=== PATIENT | female | born 1970 | race Caucasian/White ===

== ENCOUNTER → 2016-07-04 | Outpatient (CLI) | payer BC ==
[~2016-07-04] MED LIST: LOSA1TAB PO; MTRUNK PO; MULT-506 PO; PRENTAB26 PO; TYLUNK PO
== END | disposition home or self-care (01) ==
LOC: C.PAPS 16:10
PROVIDERS: ATTEND Obstetrics & Gynecology
DX: Z01.419 Encounter for gynecological examination (general) (routine) without abnormal findings (principal)

== ENCOUNTER → 2016-07-21 | Outpatient (CLI) | payer BC ==
--- NOTE | 2016-07-21 14:08 | MAMMOGRAPHY REPORT ---
BILATERAL DIGITAL SCREENING MAMMOGRAM TOMOSYNTHESIS WITH CAD: 07/21/2016 TECHNIQUE: Breast tomosynthesis in addition to standard 2D mammography was performed. Current study was also evaluated with a Computer Aided Detection (CAD) system. COMPARISON: Comparison is made to exams dated: 07/19/2015 mammogram, 07/17/2014 mammogram, 07/16/2013 mammogram, 01/15/2014 mammogram, 07/15/2012 mammogram, and 07/12/2011 mammogram - [facility]. BREAST COMPOSITION: The tissue of both breasts is heterogeneously dense, which may obscure small ma sses. FINDINGS: No suspicious masses, calcifications, or areas of architectural distortion are noted in e ither breast. There has been no significant interval change compared to prior exams. IMPRESSION: ACR BI-RADS CATEGORY 1: NEGATIVE There is no mammographic evidence of malignancy. A 1 year screening mammogram is recommended. The p atient will receive written notification of the results. Approximately 10% of breast cancers are not detected with mammography. A negative mammographic repor t should not delay biopsy if a clinically suggestive mass is present. Chelsea Ghosh M.D. /:07/21/2016 12:28:43 Accounts Payable Administrator: Mikayla GOLDBERG)(Seferino), [facility] letter sent: Normal 1/2 BI-RADS Code: ACR BI-RADS Category 1: Negative
== END | disposition home or self-care (01) ==
LOC: C.MAMM 08:41
PROVIDERS: ATTEND Obstetrics & Gynecology
DX: Z12.31 Encounter for screening mammogram for malignant neoplasm of breast (principal)

== ENCOUNTER → 2017-01-25 | Outpatient (CLI) | payer BC ==
[2017-01-25 14:13] LABS: BASO % 0.3 %; BASO ABS # 0.02 K/uL (0-0.2); COMPLETE YES; EOS % 1.5 %; HEMATOCRIT 37.5 % (37-47); IG% 0.3 %; LYMPH % 6.1 %; LYMPH ABS # 0.36 K/uL (1.2-3.4); MEAN CELL VOLUME 86.2 fL (80-100); MEAN CORPUSCULAR HEMOGLOBIN 29.9 pg (25-34); MEAN CORPUSCULAR HGB CONC 34.7 g/dl (32-36); MONO % 8.8 %; PLATELET COUNT 240 K/uL (130-400); RED BLOOD COUNT 4.35 M/uL (4.2-5.4); WHITE BLOOD COUNT 5.92 K/uL (4.8-10.8)
[2017-01-25 14:59] LABS: ALT/SGPT 23 U/L (12-78); BLOOD UREA NITROGEN 9 mg/dl (7-18); CALCIUM 8.7 mg/dl (8.5-10.1); CARBON DIOXIDE 26 mmol/L (21-32); CHLORIDE 108 mmol/L (98-107); CHOLESTEROL 166 mg/dl (0-200); CHOLESTEROL/HDL RATIO 3.5; CREATININE 0.76 mg/dl (0.60-1.20); GLUCOSE 80 mg/dl (70-99); HDL CHOLESTEROL 48 mg/dl; POTASSIUM 3.8 mmol/L (3.5-5.1); SODIUM 141 mmol/L (136-145)
[2017-01-25 15:01] LABS: ALB/GLOB RATIO 1.3 (0.9-2); ALKALINE PHOSPHATASE 48 U/L (45-117); AST/SGOT 16 U/L (15-37); LDL CHOLESTEROL CALCULATED 100 mg/dl; TRIGLYCERIDES 92 mg/dl (0-150); VERY LOW DENSITY LIPOPROT CALC 18 mg/dl
== END | disposition home or self-care (01) ==
LOC: C.LABBC 09:50
PROVIDERS: ATTEND Internal Medicine
DX: E78.5 Hyperlipidemia, unspecified (principal); I10 Essential (primary) hypertension; N92.6 Irregular menstruation, unspecified

== ENCOUNTER → 2017-02-26 | Day surgery (SDC) | payer BC ==
[2017-02-15 10:16] VITALS: BMI 24.0
[~2017-02-26] VITALS: Ht 160 cm; Wt 62.7 kg
[~2017-02-26] MED LIST changes: +LIDOCAINE HCL 2% 2 ML VIAL (20MG/ML) ONE; -MTRUNK PO; -PRENTAB26 PO; +PROPOFOL IV EMULSION 10 MG/ML 20 ML VIAL IV ONE; -TYLUNK PO
[2017-02-26 11:09] VITALS: Ht 160 cm; Wt 62.7 kg
[2017-02-26 11:21] VITALS: TEMP 36.8
--- NOTE | 2017-02-26 11:32 | Endo History and Physical ---
History & Physical Date of Service: Feb 26, 2017. Chief Complaint: Change in bowel habits Referring Physician: DR. LABOY History of Present Illness 46 yo CF who presents for colonoscopy secondary to change in bowel habits. Past Surgical History Hx Cardiac Surgery: No Hx Internal Defibrillator: No Hx Pacemaker: No Hx Abdominal Surgery: Yes (LEEP) Hx of Implantable Prosthesis: No Hx Post-Op Nausea and Vomiting: No Hx Cancer Surgery: No Hx Thoracic Surgery: No Hx Orthopedic: No Hx Urinary Tract Surgery: No Family History None Social History Smoking Status: Never Smoker Hx Substance Use: No Hx Alcohol Use: Yes (RARELY) Allergies Coded Allergies: No Known Allergies (Unverified , 02/26/17) Current Medications Reported Home Medications Medications Dose Route/Sig Max Daily Dose Days Date Category Multivitamin (Multivitamins) Tab 1 Tab PO QPM 02/15/17 Reported Cozaar (Losartan Potassium) 25 Mg Tab 25 Mg PO BID 02/15/17 Reported Vital Signs Weight (Kilograms): 62.73 Height (Feet): 5 Height (Inches): 3 Date Time Temp Pulse Resp B/P (MAP) Pulse Ox O2 Delivery O2 Flow Rate FiO2 02/26/17 11:21 36.8 80 18 156/87 (110) 99 Room Air Physical Exam General Appearance: WD/WN, no apparent distress Respiratory/Chest: Auscultation: breath sounds normal Cardiovascular: Heart Auscultation: RRR Abdomen: Bowel Sounds: normal Inspection & Palpation: soft, non-distended, no tenderness, guarding & rebound Assessment and Plan Assessment: 46 yo CF who presents for colonoscopy secondary to change in bowel habits. Plan: Proceed with colonoscopy.
--- NOTE | 2017-02-26 12:06 | Discharge Instructions ---
Endoscopy Patient Instructions Date / Procedure(s) Performed Feb 26, 2017. Colonoscopy Allergy Information Coded Allergies: No Known Allergies (Unverified , 02/26/17) Discharge Date / Findings Feb 26, 2017. Internal hemorrhoids Medication Instructions OK to resume all medications today as prescribed Reported Home Medications Medications Dose Route/Sig Max Daily Dose Days Date Category Multivitamin (Multivitamins) Tab 1 Tab PO QPM 02/15/17 Reported Cozaar (Losartan Potassium) 25 Mg Tab 25 Mg PO BID 02/15/17 Reported Provider Instructions Activity Restrictions - No exercising or heavy lifting for 24 hours. - Do not drink alcohol the day of the procedure. - Do not drive a car or operate machinery until the day after the procedure. - Do not make any important decisions or sign important papers in 24 hours after the procedure. Following Day: - Return to full activity which may include returning to work/school. Diet Start your diet with liquids and light foods (jello, soup, juice, toast). Then eat your usual diet if not nauseated. Treatment For Common After Affects For mild abdominal pain, bloating, or excessive gas: - Rest - Eat lightly - Lie on right side Follow-Up Information Follow-up with DR. LABOY as scheduled Anesthesia Information What You Should Know You have had a procedure that required some medicine to reduce anxiety and discomfort. This treatment is called moderate sedation. After receiving the treatment, you may be sleepy, but you will be able to breathe on your own. The effects of the treatment may last for several hours. Follow these instructions along with Activity/Diet recommendations noted above: * Do NOT do anything where dizziness or clumsiness would be dangerous. * Rest quietly at home today, then you can be up and about tomorrow. * Have a responsible person stay with you the rest of today. * You may have had an I.V. today. If so, you may take the dressing off later today. Recommendations Call your doctor if: * Trouble breathing * Continuous vomiting for more than 24 hours * Temperature above 101 degrees * Severe abdominal pain or bloating * Pain not relieved by pain medicine ordered * There is increased drainage or redness from any incision * A large amount of rectal bleeding greater than 2-3 tablespoons. (If you had a polyp/s removed or have hemorrhoids, a small amount of blood - from the rectum is to be expected.) * You have any unanswered questions or concerns. IN THE EVENT OF A SERIOUS EMERGENCY, GO TO THE NEAREST EMERGENCY ROOM Your discharge instructions were prepared by provider Karthik Simons. Patient Instructions Signature Page Colleen Vargas Patient (or Guardian) Signature/Date: I have read and understand the instructions given to me by my caregivers. Caregiver/RN/Doctor Signature/Date: The above-named patient and/or guardian has received patient instructions on this date. + Original Patient Signature Page (only) stays with chart. Please make copy for patient.
--- NOTE | 2017-02-26 12:10 | GI REPORT ---
Procedure Date: 02/26/2017 11:45 AM Procedure: Colonoscopy Indications: Change in bowel habits Medicines: Monitored Anesthesia Care Complications: No immediate complications. Estimated Blood Loss: Estimated blood loss: none. Procedure: Pre-Anesthesia Assessment: - Prior to the procedure, a History and Physical was performed, and patient medications and allergies were reviewed. The patient's tolerance of previous anesthesia was also reviewed. The risks and benefits of the procedure and the sedation options and risks were discussed with the patient. All questions were answered, and informed consent was obtained. Prior Anticoagulants: The patient has taken no previous anticoagulant or antiplatelet agents. ASA Grade Assessment: II - A patient with mild systemic disease. After reviewing the risks and benefits, the patient was deemed in satisfactory condition to undergo the procedure. After I obtained informed consent, the scope was passed under direct vision. Throughout the procedure, the patient's blood pressure, pulse, and oxygen saturations were monitored continuously. The scope was introduced through the anus and advanced to the terminal ileum. The colonoscopy was performed without difficulty. The patient tolerated the procedure well. The quality of the bowel preparation was good. The terminal ileum, ileocecal valve, appendiceal orifice, and rectum were photographed. Findings: Non-bleeding internal hemorrhoids were found during retroflexion. The hemorrhoids were small. Impression: - Non-bleeding internal hemorrhoids. - No specimens collected. Recommendation: - Resume previous diet. - Continue present medications. - Repeat colonoscopy in 10 years for surveillance. - Return to primary care physician as previously scheduled. Karthik Simons DO 02/26/2017 12:09:48 PM This report has been signed electronically. Note Initiated On: 02/26/2017 11:45 AM I attest to the content of the Intraoperative Record and orders documented therein, exceptions below
[2017-02-26 12:35] VITALS: BP 158/82; PULSE 60; O2SAT 100
--- NOTE | 2017-02-26 12:38 | Anesthesiology Progress Note ---
Anesthesia Post Op Note Date & Time Feb 26, 2017 at 12:38 Vital Signs Pain Intensity: 0 Vital Signs Past 12 Hours Date Time Temp Pulse Resp B/P (MAP) Pulse Ox O2 Delivery O2 Flow Rate FiO2 02/26/17 12:20 72 18 135/80 (98) 100 Room Air 02/26/17 12:05 78 18 122/71 (88) 100 Room Air 02/26/17 11:21 36.8 80 18 156/87 (110) 99 Room Air Notes Mental Status: alert / awake / arousable, participated in evaluation Pt Amnestic to Procedure: Yes Nausea / Vomiting: adequately controlled Pain: adequately controlled Airway Patency, RR, SpO2: stable & adequate BP & HR: stable & adequate Hydration State: stable & adequate Anesthetic Complications: no major complications apparent
== END | disposition home or self-care (01) ==
LOC: C.GI 10:26
PROVIDERS: ATTEND Internal Medicine
DX: R19.4 Change in bowel habit (principal); K64.8 Other hemorrhoids; Z79.899 Other long term (current) drug therapy

== ENCOUNTER → 2017-07-23 | Outpatient (CLI) | payer OTHER ==
[~2017-07-23] MED LIST changes: -LIDOCAINE HCL 2% 2 ML VIAL (20MG/ML) ONE; -PROPOFOL IV EMULSION 10 MG/ML 20 ML VIAL IV ONE
--- NOTE | 2017-07-24 15:25 | MAMMOGRAPHY REPORT ---
BILATERAL DIGITAL SCREENING MAMMOGRAM TOMOSYNTHESIS WITH CAD: 07/23/2017 CLINICAL HISTORY: Routine screening examination. TECHNIQUE: Breast tomosynthesis in addition to standard 2D mammography was performed. Current study was also evaluated with a Computer Aided Detection (CAD) system. COMPARISON: Comparison is made to exams dated: 07/21/2016 mammogram, 07/19/2015 mammogram, 07/17/2014 m ammogram, 01/15/2014 mammogram, 07/24/2013 mammogram, and 07/24/2013 ultrasound - [facility]. BREAST COMPOSITION: The tissue of both breasts is heterogeneously dense, which may obscure small mas ses. FINDINGS: The parenchymal pattern is unchanged. No developing mass, architectural distortion or clus ter of suspicious microcalcifications is seen in either breast. IMPRESSION: ACR BI-RADS CATEGORY 2: BENIGN There is no mammographic evidence of malignancy. A 1 year screening mammogram is recommended. The pa tient will receive written notification of the results. Approximately 10% of breast cancers are not detected with mammography. A negative mammographic report should not delay biopsy if a clinically suggestive mass is present. Ina Camacho M.D. ay/:07/23/2017 16:54:17 Clinical Field Specialist: Mikayla FELICIANO(Brenda)(M), [facility] letter sent: Normal 1/2 BI-RADS Code: ACR BI-RADS Category 2: Benign
== END ==
LOC: C.MAMM 13:16
PROVIDERS: ATTEND Internal Medicine
DX: Z12.31 Encounter for screening mammogram for malignant neoplasm of breast (principal)

== ENCOUNTER 2023-01-25 10:00 | Observation (INO) ==
--- NOTE | 2023-01-04 20:07 | PAT Medication Instructions ---
Medication Instructions Date of Service January 04, 2023 Home Medications qmqentelpolr-Ww-rvsh-minerals (Multiple Vitamin, Womens tablet) 1 tab PO DAILY escitalopram oxalate 10 mg tablet 10 mg PO QPM telmisartan 40 mg tablet (Micardis) 40 mg PO QPM DO NOT take the morning of surgery lihtnmsoxlxh-Ma-cdfv-minerals (Multiple Vitamin, Womens tablet) 1 tab PO DAILY Take evening before surgery escitalopram oxalate 10 mg tablet 10 mg PO QPM telmisartan 40 mg tablet (Micardis) 40 mg PO QPM OTHERWISE NOTHING TO EAT OR DRINK AFTER MIDNIGHT Other Notes If you have any questions please call us at [phone] or [phone] or [phone] or [phone]
--- NOTE | 2023-01-12 15:24 | Anesthesiology Consultation ---
Date of Service January 12, 2023 Assessment & Plan (1) Encounter for pre-operative examination: Chart Review Chart Review: Acceptable Risk for Surgery (pending PCP clearance 01/17/23) and Patient NOT seen in Pre Admission Testing - Awaiting PCP clearance 01/17/23 ([facility]) - Check test AM DOS Pt currently scheduled as 23 hours observation. If surgeon decides to change patient to Same Day Joint, patient would be acceptable risk for AGATHA, pending patient is motivated, has good support and surgeon's office completes Same Day Joint Program preop requirements. Per PAT appt on 01/12/23, no recent Covid exposures, Covid related symptoms, or recent Covid positive tests. Will leave to surgeon's discretion if preop Covid testing needed Teaching & Discussion Pre-Anesthesia Teaching/Discussion Notes: Instructed NPO after midnight before surgery,except medications with 15 cc of water. Medication instructions provided according to the PAT guidelines. History Surgery Operation Date: 01/25/23 11:00 Proposed Procedures p Left Total Hip Arthroplasty - Lobo Contreras MD Height/Weight Height: 5 ft 3 in Weight: 62.6 kg Allergies Allergy/AdvReac Type Severity Reaction Status Date / Time No Known Drug Allergies Allergy Verified 01/04/23 14:24 Medications Home Medications Medication Instructions Recorded Confirmed Last Taken jgyrfaekwqhd-Bs-jjym-minerals 1 tab PO DAILY 01/27/19 01/04/23 Unknown (Multiple Vitamin, Womens tablet) escitalopram oxalate 10 mg tablet 10 mg PO QPM 01/04/23 01/04/23 Unknown telmisartan 40 mg tablet (Micardis) 40 mg PO QPM 01/04/23 01/04/23 Unknown Past Medical History Medical History Adjustment disorder with anxiety History of COVID-19 03/2022 - mild symptoms- symptoms resolved Hypertension Exercise / Class Metabolic Activity II 4-5 Yardwork/Stairs/Walk up hill (one flight of stairs - no chest pain or SOB ) Past Family History Family History Father Hypertension Grandmother Hypertension Myocardial infarction Mother Schizophrenia Grandfather Myocardial infarction Sister Fibromuscular dysplasia Denies family history of Ovarian cancer Prostate cancer Breast cancer Lung cancer Colorectal cancer Stroke Past Surgical History Surgical History H/O oral surgery History of colonoscopy History of cryosurgery cervix History of tooth extraction Hx of biopsy vulvar Past Anesthesia History No Hx of Anesthesia Complications and No Family Hx of Anesthesia Complications History of PONV No Hx of PONV and No Hx of Motion Sickness Social History Smoking Status: Never smoker Do You Dip or Chew Tobacco: No Hx Alcohol Use: Yes Alcohol type: beer and hard liquor alcohol intake frequency: a few times a month Hx Substance Use: No substance use type: does not use Review of Systems Hx of snoring- no witnessed apnea- no hx of sleep study Patient denies chest pain, shortness of breath, dyspnea on exertion, reflux, cough, wheezing, palpitations. No hx of seizures, stroke, [place]. No hx of blood clots or blood transfusions Physical Exam Vital Signs VITALS BP 143/81 P 65 TEMP 97.9 SP02 98% RESP 16 Constitutional no acute distress ENMT Mouth: no TMJ clicking Thyromental Distance: < 3.5 Finger Breadths (3.0) Mallampati Class: I Permanent bridge bilaterally Neck neck extension not limited Respiratory normal respiratory effort; no respiratory distress Auscultation: lungs clear to auscultation bilaterally; no wheezes Cardiovascular Rate/Rhythm: regular rate and regular rhythm Heart Sounds: no murmur Vessels: no carotid bruit Musculoskeletal Spine: no pain with cervical ROM Extremities: extremities normal to inspection Psychiatric Orientation: alert Lab Results Anesthesia Preop Results Results Anesthesia Widget: WBC 4.47 K/ul (4.8-10.8) L 01/12/23 Hgb 14.1 g/dl (12.0-16.0) 01/12/23 Hct 39.5 % (37.0-47.0) 01/12/23 Plt 239 K/uL (130-400) 01/12/23 Na 136 mmol/L (136-145) 01/12/23 K 4.1 mmol/L (3.5-5.1) 01/12/23 Cl 103 mmol/L (98-107) 01/12/23 CO2 29 mmol/L (21-32) 01/12/23 BUN 17 mg/dl (6-23) 01/12/23 Creat 0.68 mg/dl (0.6-1.2) 01/12/23 Glucose Level 75 mg/dl (70-99(Fasting)) 01/12/23 PT 11.4 Seconds (9.0-12.0) 01/12/23 PTT 26.2 Seconds (21.0-31.0) 01/12/23 INR 1.0 (0.9-1.1) 01/12/23 Urine Color Yellow 01/12/23 Urine Appearance Clear (Clear) 01/12/23 Urine pH 6.0 (4.5-7.5) 01/12/23 Urine Specific [place] 1.004 (1.000-1.030) 01/12/23 Urine Protein Negative (Negative) 01/12/23 Urine Glucose (UA) Negative (Negative) 01/12/23 Urine Ketones Negative (Negative) 01/12/23 Urine Blood Negative (Negative) 01/12/23 Urine Nitrite Negative (Negative) 01/12/23 Urine Bilirubin Negative (Negative) 01/12/23 Urine Urobilinogen Negative (Negative) 01/12/23 Urine Leukocyte Esterase Negative (Negative) 01/12/23 Blood Type B Positive 01/12/23 Antibody Screen NEGATIVE 01/12/23 Testing Laboratory Results 01/12/23= URINE CULTURE: No growth- less than 1000 colonies/mL Electrocardiogram Date: 01/12/23 Findings: + SB @ (59bpm ) Minimal voltage criteria for LVH, may be normal variant
--- NOTE | 2023-01-12 16:44 | History & Physical Report ---
Date of Service January 12, 2023 Assessment & Plan (1) Osteoarthritis of left hip: Plan: PRE-OP Diagnosis: Left hip osteoarthritis Planned Procedure: Left total hip arthroplasty Plan: Patient is scheduled to undergo this procedure at the [facility] with a 23-hour observation admission with Dr. Contreras on January. Risks and complications of the procedure such as: Infection, bleeding, pain, scarring, nerve blood vessel damage, weakness, wound problems, stiffness, incomplete relief of symptoms, hardware failure, hardware loosening, wear, fracture, tendon or ligament injury, dislocation, leg length inequality, blood clots, Embolism, heart attack, stroke and were explained to the patient at her visit today. Informed consent to perform the procedure was obtained. Patient also understands risks of proceeding with surgical intervention during the COVID-19 pandemic. Currently she is asymptomatic and has not been in contact with anyone positive for the virus recently. Patient has an appointment to meet with anesthesia later today and while there will obtain CBC with differential, complete metabolic panel, PT/INR, blood type and screen, urinalysis, urine culture and sensitivity, EKG, and a nasal culture for MRSA. Patient will also need preoperative medical clearance from their primary care provider Dr. Palacio. Patient states that she plans on doing in-home physical therapy for the first 1 to [facility] Patient states that she will most likely elect to do outpatient physical therapy at our PT clinic. Patient states she has a walker and a raised toilet seat. She plans on purchasing a shower bench and a hip kit. During today's visit we reviewed the total hip packet as well as precautions. We discussed discharge planning from the hospital. I provided paperwork to obtain a handicap placard for their vehicle. We discussed lectures offered by [facility] in regards to joint replacement surgery via Zoom. I advised the patient that upon discharge from hospital we will prescribe a narcotic pain medication and anti-inflammatory. Patient will also be on an 81 mg aspirin twice daily for blood clot prevention. Patient will be scheduled for 2-week postoperative follow-up visit with myself on February 07. At that visit we will Provide the patient with an order for outpatient physical therapy and rehab protocol. Patient verbalizes understanding of all information provided during today's visit. She thanks for the care that she received. If she has questions or concerns that should arise prior to her surgery, she will contact clinic. This chart was completed utilizing [employer] voice recognition software. Grammatical errors, random word insertions, pronoun errors, and in complete sentences are an occasional consequence of the system. Any questions or concerns about the content, text, or information contained within the body of this dictation should be addressed directly to the physician for clarification. History of Present Illness Chief Complaint: Left Hip Pain Primary Care Provider: Nolan Palacio MD History of Present Illness (including history relevant to procedure): This 52-year-old female presents to the clinic today for preoperative history and phy sical. Patient complains of constant left hip pain for the past several years. She has noticed decreasing mobility and difficulty transitioning from a seated to a standing position after sitting for long periods of time. She states that at times the pain radiates from her groin down her leg. She denies any numbness or tingling or recent injuries. She has failed conservative management with ph ysical therapy and the use of nonsteroidal agents. She has elected to proceed with surgical intervention. Review Of Systems: A 12 point review of systems is performed and is unremarkable except for those things stated in the HPI and past medical history. Past Medical History: Problems: Arthritis of left hip High blood pressure Hip osteoarthritis Left hip pain Anxiety/depression Migraine headache Procedure History Procedure Procedure Date Comments [place] tooth 1989 Initial Wt: 01/12 61.0 kg 134 lb Allergies Allergy/AdvReac Type Severity Reaction Status Date / Time No Known Drug Allergies Allergy Verified 01/04/23 14:24 Home Medications Medication Instructions Recorded Confirmed Type ueugxemjvaku-Qj-taik-minerals 1 tab PO DAILY 01/27/19 01/04/23 History (Multiple Vitamin, Womens tablet) escitalopram oxalate 10 mg tablet 10 mg PO QPM 01/04/23 01/04/23 History telmisartan 40 mg tablet (Micardis) 40 mg PO QPM 01/04/23 01/04/23 History Past Med/Surg History Medical History Adjustment disorder with anxiety History of COVID-19 03/2022 - mild symptoms- symptoms resolved Hypertension Surgical History H/O oral surgery History of colonoscopy History of cryosurgery cervix History of tooth extraction Hx of biopsy vulvar Family History Father Hypertension Grandmother Hypertension Myocardial infarction Mother Schizophrenia Grandfather Myocardial infarction Sister Fibromuscular dysplasia Denies family history of Ovarian cancer Prostate cancer Breast cancer Lung cancer Colorectal cancer Stroke Social History Smoking Status: Never smoker Second Hand Exposure: No; Do You Dip or Chew Tobacco: No; Hx Alcohol Use: Yes Alcohol type: beer and hard liquor Alcohol Intake Frequency Comment: Social Hx Substance Use: No Preferred Language: Spanish Communication Ability: Effective Visual Impairment: No Limitations Hearing Ability: Normal Housekeeping Supervisor Required: No Beliefs That Will Affect Care: None marital status: Current Living Situation: Family Current Living Situation Comment: lives with 14 y.o. son Feels Safe at Home: Yes Childhood Exposure to Second-Hand Smoke: No Seatbelt Use: always Assistive Devices: Glasses Review of Systems All systems reviewed & are unremarkable except as noted in Subjective Physical Exam Physical Exam: Physical Exam: (relevant to the procedure, including heart and lung evaluation) General: Alert and oriented x3 with proper grooming and hygiene Eyes: Pupils are equal and reactive to light with accommodation. Extraocular movements are intact Throat: Posterior oropharynx clear with absence of edema, erythema or exudate. Dentition is appropriate Cardiac: Regular rate and rhythm with no murmurs or gallops appreciated Lungs: Clear to auscultation throughout with no wheezing, rales or rhonchi Abdomen: Nonobese, nondistended, nontender with NABS Extremities: Left hip: Passive flexion is limited to 80 degrees, internal rotation is -5 degrees and external rotation to 50 degrees. Stinchfield test is positive. Logroll test causes no pain. Patient experiences tenderness to palpation over the groin area. There is crepitation with passive range of motion. Patient is neurovascular intact. Neuro: Cranial nerves II through XII are intact no motor or sensory deficit Skin: Normal in appearance no open skin areas or discharge Results & Data Diagnostic Findings Studies of Lab Results (relevant to the procedure): X-ray imaging: AP, pelvis, and 2 views of each hip obtained show degenerative changes of thelateral acetabular rim of the left hip and enlargement of osteophytes inferiorly. There is evidence of joint space narrowing of the right hip.
[~2023-01-25 10:00] MED LIST changes: +ACETAMINOPHEN 500 MG TAB PO SCH; +BUPIVACAINE 0.5 % 5 MG/1 ML PF 10ML VIAL ONE; +CeleBREX 200 MG CAP PO SCH; +FAMOTIDINE 20 MG TAB PO SCH; +LIDOCAINE 2% 2 ML VIAL/AMP(20MG/ML) INFIL ONE; -LOSA1TAB PO; +LR 500ML BOLUS, THEN 15ML/HR IV SCH; +LR 60ML/HR IV SCH; +MIDAZOLAM HCL 1 MG/ML 2ML VIAL ONE; -MULT-506 PO; +ONDANSETRON INJ 2 MG/ML 2 ML VIAL ONE; +PROPOFOL IV EMULSION 10 MG/ML 20 ML VIAL IV ONE; +ROPIVACAINE 0.5% HCL/PF 150 MG, BUPIVACAINE 0.75% MPF 20 ML, EPINEPHrine 0.15 MG, Ketor... INFIL SCH; +Scopolamine 1 MG TDSY TD SCH; +TRANEXAMIC ACID 1,000 MG **IV Intra-op IV SCH; +TRANEXAMIC ACID 1,000 MG **IV Pre-op IV SCH; +ceFAZolin 2000MG 2,000 MG/15 ML SYR IV SCH; +dexAMETHasone 4 MG TAB PO SCH; +fentaNYL citrate PF 100 MCG/2 ML VIAL ONE; +traMADol HCL 50 MG TABLET PO SCH
[2023-01-25] MEDS ORDERED: ePHEDrine sulfate 50 MG/ML AMP IV PRN (10:38)
[2023-01-25] MEDS ORDERED: ONDANSETRON INJ 2 MG/ML 2 ML VIAL IV PRN ×2 (10:38→13:11)
[2023-01-25] MEDS ORDERED: ATROPINE SULFATE 0.1 MG/ML 10ML SYR IV PRN (10:38)
[2023-01-25] MEDS ORDERED: fentaNYL citrate PF 100 MCG/2 ML VIAL IV PRN (10:38)
--- NOTE | 2023-01-25 10:47 | History & Physical Bridge Note ---
Date of Service January 25, 2023 History & Physical Bridge Note I have examined the patient, reviewed the History & Physical and in the interval since the performance of the History & Physical I have noted the following changes of clinical significance: no changes noted
[2023-01-25] MEDS ORDERED: ORTHO JOINT ANESTHETIC ONE (11:01)
[2023-01-25] MEDS ORDERED: DEXAMETHASONE SOD INJ 4 MG/ML VIAL ONE (11:48)
[2023-01-25] MEDS ORDERED: ePHEDrine sulfate 50 MG/ML SYR ONE (12:31)
[2023-01-25] MEDS ORDERED: PHENYLEPHRINE HCL 10 MG/ML VIAL ONE (12:31)
--- NOTE | 2023-01-25 13:01 | Operative Report ---
Post Operative Report Pre & Post Diagnosis Operation Date: 01/25/23 11:20 Pre-Op Diagnosis: Left Hip Osteoarthritis Post-Op Diagnosis: Left Hip Osteoarthritis I identified the patient and participated in the time-out.: Yes Procedure Operation Date: 01/25/23 11:20 Actual Procedures p Left Total Hip Arthroplasty--Uncemented(Left) - Lobo Contreras MD Surgeon Lobo Contreras MD Certified Medical Aide DANNY Diane PA-C no resident or fellow was available to assist Estimated Blood Loss 100 Findings Consistent with Post-Op Diagnosis Specimens left femoral head Anesthesia Type Spinal MAC Complications none Disposition Disposition: Recovery Room Indications 52-year-old female with left hip arthritis refractory to conservative management. X-rays demonstrate severe joint space loss [id number], subchondral sclerosis, and subchondral cyst formation with marginal osteophytes. I had a long discussion with her about the risks and benefits of surgery, alternatives to surgery, and expected outcomes. After reviewing all these she elected to proceed with surgery. All questions were answered. Informed consent was signed. Description of Procedure Patient was identified in the preoperative holding area where the surgical site, left hip, was marked. A spinal anesthetic was placed, then the patient was brought back to the main operating room, placed in the operating table and moved into the lateral decubitus position. Axillary roll was placed. All bony prominences were padded. Perioperative antibiotics and tranexamic acid 1 gram IV were administered. Operative extremity was prepped and draped in the normal sterile fashion. Prior to incision a multidisciplinary timeout was called. All in the room were in agreement. We began by making an incision for a posterior approach to the hip. We dissected down through subcutaneous tissues to the level of the fascia. The fascia was incised in line with the incision. Charnley bow was placed. Fatty tissue was reflected posteriorly off the back of the greater trochanter to expose the piriformis and short external rotators of the hip. The piriformis and short external rotators were dissected off the posterior aspect of the hip. A box cut was made in the capsule. Inferior hip capsule was released off the femur. The femoral head was dislocated. The femoral neck cut was made at our preoperative template. The acetabulum was then exposed. The labrum was sharply excised. Contents of the cotyloid fossa were removed with electrocautery. We then began reaming at a size 8 mm less than our preoperative template. We reamed up by [address] the way up to a size 50 mm cup. This gave us good bleeding cancellus bone circumferentially. The acetabulum was then irrigated out and dried. The real [place] Gription cup was then impacted down into position with 45 degrees of lateral opening and 25 degrees of anteversion. A single cancellous bone screw was placed up into the ilium. Excellent fixation was obtained. A trial liner for a 32 mm femoral head was then placed. Next we turned our attention to the femur. The lateral neck was removed with a box osteotome. Intramedullary guide was used followed by the lateralizing reamer. We then reamed up to a size 3 [place] stem. We then broached all the way up to a size 3. We began trialing with a high offset neck and a +5 head. Hip was reduced. Leg lengths were symmetric. The hip was stable in extension and external rotation, and stable in the sleeper position. At 90 degrees of hip flexion the hip could be internally rotated 55 degrees before levering out of the cup. I was very happy with the stability exam. Therefore the hip was dislocated and the femoral trial was removed. The acetabulum was re-exposed, and the trial liner was removed. [place] hole eliminator was placed. An Altrx polyethylene liner for a 32 mm femoral head was then impacted into the shell. The locking mechanism was checked to ensure that it had engaged which it had. The femur was re-exposed. The femoral canal was irrigated and dried. The real size 3 high offset [place] femoral stem was opened up. This was impacted down into position. It sat at the same level as the femoral trial. Therefore the 32 mm ceramic femoral head with +5 mm offset was opened up and gently impacted down onto the trunnion. The hip was atraumatically reduced. Another 1 gram of IV tranexamic acid was started prior to closure. The wound was irrigated out with sterile Betadine solution. The periarticular injection cocktail was then placed. The short external rotators, piriformis, and posterior capsule were repaired through drill holes in the greater trochanter using #2 Vicryl. The fascia was run with a looped #1 PDS. The subcutaneous layer was closed with #1 PDS. The dermal layer was closed with 2-0 Vicryl. Zip line was used for the skin followed by a Silverlon dressing. A compressive dressing was then placed. The patient was then rolled supine. Leg lengths were rechecked and were symmetric. An abduction pillow was placed. Sedation was lifted and the patient was transferred to the recovery room in stable condition. Summary of implants: Depuy [place] Gription Acetabular Shell Sector Cup, 50 mm outer diameter [place] Cancellous bone screw, 6.5 x 40 mm [place] hole eliminator [place] Altrx Polyethylene Acetabular Liner, Neutral, with a 32 mm inner diameter DePuy [place] Femoral stem with [place], 12/14 taper, size 3 high offset 32 mm ceramic femoral head with +5 offset Postoperative course: Patient will be admitted to the hospital from the recovery room. Patient will be weightbearing as tolerated with posterior hip precautions. Aspirin for DVT prophylaxis I attest to the content of the Intraoperative Record and any orders documented therein. Any exceptions are noted below.
--- NOTE | 2023-01-25 13:10 | Operative Report ---
Post Operative Report Pre & Post Diagnosis Operation Date: 01/25/23 11:20 Pre-Op Diagnosis: Left Hip Osteoarthritis Post-Op Diagnosis: Left Hip Osteoarthritis I identified the patient and participated in the time-out.: Yes Procedure Operation Date: 01/25/23 11:20 Actual Procedures p Left Total Hip Arthroplasty--Uncemented(Left) - Lobo Contreras MD Surgeon Lobo Contreras MD Patient Care Assistant DANNY Diane PA-C no resident or fellow was available to assist Estimated Blood Loss 100 Findings Consistent with Post-Op Diagnosis Specimens femoral head Description of Procedure I was present during the entire case assisting with positioning, prepping, draping, wound closure, dressing and abduction pillow placement. No fellow present. Please see Dr. Contreras procedure note for specifics of the case. I attest to the content of the Intraoperative Record and any orders documented therein. Any exceptions are noted below.
[2023-01-25] MEDS ORDERED: HYDROmorphone INJ 0.5 MG/0.5 ML SYR IV PRN (13:11)
[2023-01-25] MEDS ORDERED: diphenhydrAMINE 50 MG/ML VIAL IV PRN (13:11)
[2023-01-25] MEDS ORDERED: NALOXONE HCL 0.4 MG/1 ML VIAL/CARP IV PRN (13:11)
[2023-01-25] MEDS ORDERED: bisacodyL 10 MG SUPP PR PRN (13:11)
[2023-01-25] MEDS ORDERED: METOCLOPRAMIDE HCL INJ 5 MG/ML 2 ML VIAL IV PRN (13:11)
[2023-01-25] MEDS ORDERED: ALUMINUM/MAGNESIUM SUSP 30 ML UDC PO PRN (13:11)
[2023-01-25] MEDS ORDERED: MAGNESIUM HYDROXIDE SUSP 30 ML UDC PO PRN (13:11)
[2023-01-25] MEDS ORDERED: oxyCODONE HCL IR 5 MG TAB (IMMEDIATE RELEASE) PO PRN (13:11)
--- NOTE | 2023-01-25 13:38 | XRay Report ---
XR pelvis 1-2V routine HISTORY: 52 years-old Female In PACU - Post Surgical left hip arthroplasty COMPARISON: 01/12/2023 TECHNIQUE: AP view of the pelvis FINDINGS: Moderate right hip osteoarthritis. Left hip arthroplasty demonstrates satisfactory alignment. Expecte d postoperative soft tissue swelling with deep tissue air surrounds the left hip. No acute fracture, dislocation or unexpected opaque foreign body. IMPRESSION: Left hip arthroplasty with expected postoperative changes. ACT 112: Negative or not required by law. The above report was generated using voice recognition software. It may contain grammatical, syntax o r spelling errors. Electronically signed by: Mt Del Cid M.D. 01/25/2023 1:36 PM
--- NOTE | 2023-01-25 13:52 | Anesthesiology Progress Note ---
Date of Service January 25, 2023 Anesthesia Post Procedure Vital Signs Vital Signs: Temp Pulse Pulse Resp BP BP Pulse Ox 01/25/23 13:30 59 L 13 143/78 H 98 01/25/23 13:50 62 14 133/74 100 01/25/23 13:40 58 L 12 137/75 98 01/25/23 13:20 67 12 139/78 99 01/25/23 13:11 97.9 F 69 19 132/73 100 01/25/23 10:40 98.2 F 81 18 159/86 H 98 O2 Del Method O2 Flow Rate 01/25/23 13:30 Room Air 01/25/23 13:50 Room Air 01/25/23 13:40 Room Air 01/25/23 13:20 Oxymask 5 01/25/23 13:11 Oxymask 5 01/25/23 10:40 Room Air Transfer of Care Handoff Completed per policy Notes Mental Status: alert / awake / arousable and participated in evaluation Patient Amnestic to Procedure: Yes Nausea / Vomiting: adequately controlled Pain: adequately controlled Airway Patency, RR, SpO2: stable & adequate BP & HR: stable & adequate Hydration State: stable & adequate Anesthetic Complications: no major complications apparent and Pt Satisfied with anesthetic care
[2023-01-25] MEDS: Scopolamine CHECK PATCH PLACEMENT SCH ×2 (16:30→23:50)
[2023-01-25] MEDS: SODIUM CHLORIDE 0.9% 1000ML 1,000 ML IV SCH (16:30)
[2023-01-25] MEDS: KETOROLAC TROMETHAMINE 15 MG/ML VIAL IV SCH ×2 (16:32→20:57)
[2023-01-25] MEDS: ACETAMINOPHEN 500 MG TAB PO SCH ×2 (16:32→23:49)
[2023-01-25] MEDS: ceFAZolin 2000MG 2,000 MG/15 ML SYR IV SCH (18:29)
[2023-01-25] MEDS ORDERED: TRANEXAMIC ACID / 0.7% NACL 1,000 MG/100 ML BAG IV SCH (19:15)
[2023-01-25] MEDS: DOCUSATE SODIUM 100 MG CAP PO SCH (20:50)
[2023-01-25] MEDS: ASPIRIN 81 MG ECTAB PO SCH (20:51)
[2023-01-25] MEDS ORDERED: ESCITALOPRAM OXALATE 10 MG TAB PO SCH (21:00)
[2023-01-25] MEDS ORDERED: LOSARTAN POTASSIUM 50 MG TAB PO SCH (21:00)
[2023-01-25] MEDS ORDERED: SENNA 8.6 MG TAB PO SCH (21:00)
[2023-01-26] MEDS: SODIUM CHLORIDE 0.9% 1000ML 1,000 ML IV SCH (01:55)
[2023-01-26] MEDS: ceFAZolin 2000MG 2,000 MG/15 ML SYR IV SCH (03:38)
[2023-01-26] MEDS: KETOROLAC TROMETHAMINE 15 MG/ML VIAL IV SCH ×2 (03:38→09:49)
[2023-01-26] MEDS ORDERED: dexAMETHasone 4 MG TAB PO SCH (08:00)
[2023-01-26] MEDS: Scopolamine CHECK PATCH PLACEMENT SCH (08:06)
[2023-01-26] MEDS: ACETAMINOPHEN 500 MG TAB PO SCH (08:09)
[2023-01-26] MEDS: ASPIRIN 81 MG ECTAB PO SCH (08:12)
[2023-01-26] MEDS: DOCUSATE SODIUM 100 MG CAP PO SCH (08:12)
[2023-01-26 08:53] LABS: Basophils # (auto) 0.01 K/uL (0.00-0.20); Basophils % (auto) 0.1 %; Hematocrit (blood only) 31.8 % (37.0-47.0); Hemoglobin 11.3 g/dl (12.0-16.0); Immature Granulocytes # (auto) 0.04 K/uL (0.01-0.20); Immature Granulocytes % (auto) 0.4 %; Lymphocytes # (auto) 0.21 K/uL (1.20-3.40); Lymphocytes % (auto) 2.1 %; Mean Corpuscular Hemoglobin 30.2 pg (25.0-34.0); Mean Corpuscular Hgb Conc 35.5 g/dL (32.0-36.0); Mean Platelet Volume 10.1 fL (9.4-12.4); Monocytes # (auto) 0.94 K/uL (0.11-0.59); Monocytes % (auto) 9.5 %; Neutrophils # (auto) 8.68 K/uL (1.40-6.50); Neutrophils % (auto) 87.9 %; Platelet Count 223 K/uL (130-400); RDW Coefficient of Variation 11.6 % (11.5-14.5); RDW Standard Deviation 35.7 fL (36.4-46.3); Red Blood Count 3.74 M/uL (4.20-5.40); White Blood Count 9.88 K/ul (4.8-10.8)
[2023-01-26] MEDS ORDERED: CEROVITE ADV FORMULA TAB PO SCH (09:00)
[2023-01-26] MEDS ORDERED: MULTIVITAMIN TAB PO SCH (09:00)
[2023-01-26 09:16] LABS: Calcium 8.9 mg/dl (8.6-10.3); Creatinine Clr Calc Pharmacy 88.7 ml/min; Est GFR (African American) 119.8 ml/min; Est GFR (Non-African American) 103.3 ml/min; Potassium 4.2 mmol/L (3.5-5.1)
--- NOTE | 2023-01-26 09:21 | Orthopedic Progress Note ---
Date of Service January 26, 2023 Assessment & Plan (1) S/P total left hip arthroplasty: Plan: Total hip precautions were reviewed PT/OT Keep Silverlon dressing in place Abduction pillow use x6 weeks Weightbearing as tolerated with walker assistance DVT prophylaxis with JOAN stockings and aspirin Pain control with p.o. medication Ice with easy wrap Plan is to discharge home today with in-home physical therapy for the first 2 weeks Follow-up at [facility] orthopedics as previously scheduled With questions contact our clinic at [phone] Admission and Anticipated Discharge Date Admission Date: January 25, 2023 Subjective This 52-year-old female is day 1 status post left total hip arthroplasty. Patient is doing very well. She states her pain is well controlled with the p.o. pain medication she was given. She states she has been able to transition from a seated to a standing position with the assistance of her walker without s ignificant difficulty. She states she has walked around her room and been able to navigate to the bathroom. Currently she denies chest pain, shortness of breath, fever, chills, sweats, nausea, vomiting, diarrhea or difficulty voiding. She states she feels the block is still slightly in effect because she does have some numbness in her calf and knee area. Review of Systems Review of Systems: All systems reviewed & are unremarkable except as noted in Subjective Physical Exam Physical Exam: Left hip: Outer dressing was removed. Silverlon is clean dry and intact and left in place. Patient has no pain with logroll testing. She is able to actively perform a straight leg raise test and dorsi and plantarflex her foot. She tolerates light passive hip flexion to 80 degrees. She does have some twinging type pain with light passive internal and external hip rotation. Her quad strength is 4 out of 5. She is neurovascularly intact. Results & Data Vital Signs (Past 12 Hours) Vital Signs Temp Pulse Resp BP BP Pulse Ox O2 Del Method 01/26/23 07:19 36.7 C 79 15 115/71 98 Room Air 01/26/23 03:43 36.6 C 55 L 16 123/73 97 Room Air Diagnostic Findings Laboratory Results WBC 9.88 K/ul (4.8-10.8) 01/26/23 07:58 RBC 3.74 M/uL (4.20-5.40) L 01/26/23 07:58 Hgb 11.3 g/dl (12.0-16.0) L 01/26/23 07:58 Hct 31.8 % (37.0-47.0) L 01/26/23 07:58 MCV 85.0 fL (80.0-100.0) 01/26/23 07:58 MCH 30.2 pg (25.0-34.0) 01/26/23 07:58 MCHC 35.5 g/dL (32.0-36.0) 01/26/23 07:58 RDW Std Deviation 35.7 fL (36.4-46.3) L 01/26/23 07:58 RDW Coeff of Puja 11.6 % (11.5-14.5) 01/26/23 07:58 Plt Count 223 K/uL (130-400) 01/26/23 07:58 MPV 10.1 fL (9.4-12.4) 01/26/23 07:58 Immature Gran % (Auto) 0.4 % 01/26/23 07:58 Neut % (Auto) 87.9 % 01/26/23 07:58 Lymph % (Auto) 2.1 % 01/26/23 07:58 [place] % (Auto) 9.5 % 01/26/23 07:58 Eos % (Auto) 0.0 % 01/26/23 07:58 Baso % (Auto) 0.1 % 01/26/23 07:58 Neut # (Auto) 8.68 K/uL (1.40-6.50) H 01/26/23 07:58 Lymph # (Auto) 0.21 K/uL (1.20-3.40) L 01/26/23 07:58 [place] # (Auto) 0.94 K/uL (0.11-0.59) H 01/26/23 07:58 Eos # (Auto) 0.00 K/uL (0.00-0.50) 01/26/23 07:58 Baso # (Auto) 0.01 K/uL (0.00-0.20) 01/26/23 07:58 Immature Gran # (Auto) 0.04 K/uL (0.01-0.20) 01/26/23 07:58 Sodium 139 mmol/L (136-145) 01/26/23 07:58 Potassium 4.2 mmol/L (3.5-5.1) 01/26/23 07:58 Chloride 108 mmol/L (98-107) H 01/26/23 07:58 Carbon Dioxide 26 mmol/L (21-32) 01/26/23 07:58 Anion Gap 5 (3-11) 01/26/23 07:58 BUN 15 mg/dl (6-23) 01/26/23 07:58 Creatinine 0.60 mg/dl (0.6-1.2) 01/26/23 07:58 Est Cr Clr Drug Dosing 88.7 ml/min 01/26/23 07:58 Est GFR ( Amer) 119.8 ml/min 01/26/23 07:58 Est GFR (Non-Af Amer) 103.3 ml/min 01/26/23 07:58 BUN/Creatinine Ratio 25.0 (10-20) H 01/26/23 07:58 Glucose 103 mg/dl (70-99(Fasting)) H 01/26/23 07:58 Calcium 8.9 mg/dl (8.6-10.3) 01/26/23 07:58 POC Ur Test NEG (NEG) 01/25/23 10:15 Impressions Pelvis X-Ray 01/25/23 13:11 XR pelvis 1-2V routine HISTORY: 52 years-old Female In PACU - Post Surgical left hip arthroplasty COMPARISON: 01/12/2023 TECHNIQUE: AP view of the pelvis FINDINGS: Moderate right hip osteoarthritis. Left hip arthroplasty demonstrates satisfactory alignment. Expected postoperative soft tissue swelling with deep tissue air surrounds the left hip. No acute fracture, dislocation or unexpected opaque foreign body. IMPRESSION: Left hip arthroplasty with expected postoperative changes. ACT 112: Negative or not required by law. The above report was generated using voice recognition software. It may contain grammatical, syntax or spelling errors. Electronically signed by: Mt Del Cid M.D. 01/25/2023 1:36 PM
--- NOTE | 2023-01-26 09:22 | Discharge Summary ---
Date of Service January 26, 2023 Admission HPI Per Admitting Provider History of Present Illness (including history relevant to procedure): This 52-year-old female presents to the clinic today for preoperative history and physical. Patient complains of constant left hip pain for the past several years. She has noticed decreasing mobility and difficulty transitioning from a seated to a standing position after sitting for long periods of time. She states that at times the pain radiates from her groin down her leg. She denies any numbness or tingling or recent injuries. She has failed conservative management with physical therapy and the use of nonsteroidal agents. She has el ected to proceed with surgical intervention. Review Of Systems: A 12 point review of systems is performed and is unremarkable except for those things stated in the HPI and past medical history. Past Medical History: Problems: Arthritis of left hip High blood pressure Hip osteoarthritis Left hip pain Anxiety/depression Migraine headache Procedure History Procedure Procedure Date Comments Reed tooth 1989 Initial Wt: 01/12 61.0 kg 134 lb Admission Exam Per Admitting Provider Physical Exam: (relevant to the procedure, including heart and lung evaluation) General: Alert and oriented x3 with proper grooming and hygiene Eyes: Pupils are equal and reactive to light with accommodation. Extraocular movements are intact Throat: Posterior oropharynx clear with absence of edema, erythema or exudate. Dentition is appropriate Cardiac: Regular rate and rhythm with no murmurs or gallops appreciated Lungs: Clear to auscultation throughout with no wheezing, rales or rhonchi Abdomen: Nonobese, nondistended, nontender with NABS Extremities: Left hip: Passive flexion is limited to 80 degrees, internal rotation is -5 degrees and external rotation to 50 degrees. Stinchfield test is positive. Logroll test causes no pain. Patient experiences tenderness to palpation over the groin area. There is crepitation with passive range of motion. Patient is neurovascular intact. Neuro: Cranial nerves II through XII are intact no motor or sensory deficit Skin: Normal in appearance no open skin areas or discharge Principal Diagnosis Left hip osteoarthritis Discharge Exam Left hip: Outer dressing was removed. Silverlon is clean dry and intact and left in place. Patient has no pain with logroll testing. She is able to actively perform a straight leg raise test and dorsi and plantarflex her foot. She tolerates light passive hip flexion to 80 degrees. She does have some twinging type pain with light passive internal and external hip rotation. Her quad strength is 4 out of 5. She is neurovascularly intact. Discharge Data Allergies Allergy/AdvReac Type Severity Reaction Status Date / Time No Known Drug Allergies Allergy Verified 01/25/23 10:19 Procedures Performed Operation Date: 01/25/23 11:20 Actual Procedures p Left Total Hip Arthroplasty--Uncemented(Left) - Lobo Contreras MD Hospital Course (1) S/P total left hip arthroplasty: Patient had an uneventful overnight stay following total hip arthroplasty. She is very pleased with the results of the surgery. She really has no pain at present. She feels that her function is significantly improved from her mobility prior to surgery. She plans on going home later this morning and is set up with in-home physical therapy for the first 2 weeks. Total hip precautions were reviewed PT/OT Keep Silverlon dressing in place Abduction pillow use x6 weeks Weightbearing as tolerated with walker assistance DVT prophylaxis with JOAN stockings and aspirin Pain control with p.o. medication Ice with easy wrap Plan is to discharge home today with in-home physical therapy for the first 2 weeks Follow-up at [facility] orthopedics as previously scheduled With questions contact our clinic at [phone] Total Time Total Time Spent Total Time Spent (In Minutes): 20 mins Discharge Plan Discharge Items Patient Disposition: Home - Home Health Services Reason For Visit: Left Hip Osteoarthritis Discharge Diagnosis: Left Hip Osteoarthritis Activity: As commented below Lifting: None Bathing: Keep incision dry Bathing Comment: May shower tomorrow Sexual Activity: Wait until after follow-up appointment Exercise/Sports: Wait until after follow-up appointment Driving/Machine Use: No driving until cleared by hiv prevention specialist Weightbearing: Left weightbearing Weightbearing Comment: as tolerated with walker assistance Non-emergency contact: Surgeon Call non-emergency contact if: you have any medication questions, your temperature is above 101.5, your wound has increased drainage and your wound pain has increased Follow-up/Referrals: ProNolan MD [Primary Care Provider] - Diet: Regular Addtl Attending Provider Instructions: Post-operative Instructions Dear Patient and Family/Friends, Before you are discharged from the hospital, it is important to know what to expect when you get home after surgery. To that end, we have created this sheet of discharge instructions which covers many commonly asked questions. Make sure you go through this sheet in its entirety with your nurse before you are discharged. Please note that we will go over the specifics of your surgery and recovery when you return for your first post-operative visit. Sincerely, Dr. Contreras Medications 1. Oxycodone 5 mg: take 1-2 tabs every 4-6 hours as needed for pain control. This will be sent to your pharmacy. 2. Diclofenac Sodium 75 mg: take 1 tab twice daily for 30 days post operatively for pain and inflammation relief. This will be sent to your pharmacy with 1 refill. 3. Aspirin 81 mg: increase your daily aspirin to twice daily for 30 days post operatively for blood clot prevention. 4. Extra Strength Tylenol 500 mg: take 2 tabs every 6-8 hours as needed for additional pain relief. Please purchase. Pain Expect to be in a fair amount of pain after surgery. Remember, our goal is not to eliminate your pain, but to make it tolerable. It is a good idea to stay ahead of your pain by taking the medications you were prescribed once you get home. Typically, the pain starts improving 3-7 days after surgery. You should start weaning off the narcotic pain medication (oxycodone, hydrocodone, hydromorphone, morphine) as soon as your pain improves. Please call our office if your pain is not adequately controlled. Ice Ice your operative site at least 5 times a day for 15-30 minutes at a time. Make sure you have a thin cloth between the ice or cooling unit and your skin to prevent navas bite. This is especially important if you received a nerve block. Continue icing your operative site for the first 5-7 days after surgery, then as needed. Diet/Nausea/Vomiting Start by drinking clear liquids and eating crackers. If you can tolerate this, then you may resume your normal diet. If you feel nauseated or vomit, take Zofran/ondansetron (if prescribed). Please call our office if you have intractable nausea or vomiting, or, if after hours, you may go to the Emergency Room for help. Constipation Constipation is a common side effect of narcotic pain medication. If you have not had a bowel movement within 2 days after surgery, we recommend purchasing an over the counter laxative such as Milk of Magnesia, Dulcolax, or Miralax from a local pharmacy, and taking it as instructed. Call our clinic if any questions. Nerve block The anesthesia team sometimes places a nerve block to help with post-operative pain control. This results in significant numbness and inability to move the extremity. The nerve block usually wears off in 8-12 hours, but sometimes can last up to 24 hours. Please call our office if you are still unable to move your extremity after 24 hours, unless you received a pain pump to take home. Nerve blocks typically wear off quickly, so start taking pain medication as soon as you start feeling soreness near your surgical site. Weight bearing and Range of Motion. Do not bear any weight through your operative extremity immediately after surgery. If you had upper extremity surgery, do not lift anything with that arm. If you are in a knee brace, keep it locked in place until your follow-up. We will discuss your weight bearing, range of motion, and lifting restrictions in detail at your first post-operative appointment. Continuous Passive Motion (CPM) Machine If you were prescribed a CPM machine, it will start after your first post- operative appointment, at which time we will give you instructions on the range of motion settings and duration of treatment Physical therapy You will be given a prescription for physical therapy or occupational therapy at your first post-operative appointment. Typically, patients start therapy within 1 week of surgery Wound care and showering We will inspect your wound at your first post-operative visit, and may do a dressing change at that time. Most patients will be in a water-proof dressing that is removed 14 days after surgery. It is normal to see some dried blood on the dressing. Do not remove your dressing, paper strips or sutures yourself unless you are given permission. Showering is allowed the day after surgery. Do not scrub or remove any dressings. The wound should not be submerged underwater (i.e. in a bathtub or pool) until 4 weeks after surgery JOAN stockings If you were given white stockings, these are to be worn at all times except to shower (on both legs) for the first 2 weeks after surgery. Driving You may not drive while taking narcotic pain medication or while in a cast, splint, sling or brace. You, the patient, need to make the final determination about when you are safe to drive, however, the earliest you may consider driving after surgery is below: Hand/Wrist/Elbow Surgery: 3 days Shoulder Surgery: 2 weeks Hip,/Knee/Ankle Surgery: 4 weeks Fracture repair: 6 weeks Return to Work Your return to work depends on what surgery was done and what type of work you d o. Please bring any paperwork your employer needs completed to your first post- operative visit. Also, bring a description of your job duties, as this helps us to understand what risks you may face at work. Travel Avoid long distance travel (greater than 1 hour) in airplanes and cars for the first 6 weeks after surgery. If you must travel, you need to have a Doppler ul trasound done before you travel to rule out a blood clot in your legs. Follow-up You should have a follow-up appointment already scheduled 1-2 days after surgery. If not, please contact our office to make this appointment before you leave the hospital. When to call the office It is normal to have swelling and bruising in the limb that was operated on. This will improve with time. It is also normal to have fevers for the first 2 days after surgery. Reasons you should call your doctor include: Uncontrolled pain; Nausea, vomiting, or constipation that does not improve with medication; Fevers over 101.5, chills, sweats; Drainage or bleeding from the wound; Foul odor; Spreading areas of redness; Any other concerns Pending Studies at Discharge: No Stand-Alone Forms: My [facility] Medications and DC Order Prescriptions: New aspirin 81 mg Tablet,Delayed Release (Dr/Ec) 81 mg PO BID 30 Days Qty: 60 0RF acetaminophen [Tylenol Extra Strength] 500 mg Tablet 1,000 mg PO Q8H 30 Days Qty: 180 0RF oxycodone 5 mg Tablet 5 - 10 mg PO Q4H MDD Ongoing Tx PRN (Reason: Post op pain control) Qty: 28 0RF diclofenac sodium 75 mg tablet,delayed release (DR/EC) 75 mg PO BID 30 Days Qty: 60 1RF Continued Multiple Vitamin, Womens tablet 1 tab PO DAILY telmisartan [Micardis] 40 mg tablet 40 mg PO QPM escitalopram oxalate [Lexapro] 10 mg tablet 10 mg PO QPM Admission Data Admit Date/Time: 01/25/23 13:11 Attending Provider: Lobo Contreras Admit Provider: Lobo Contreras Primary Care Provider: Pro,Nolan W. Other Providers: Ángel,Home Health
[2023-01-26] MEDS ORDERED: CeleBREX 200 MG CAP PO SCH (21:00)
== END 2023-01-26 12:51 | disposition home health service (06) ==
LOC: ASU 10:00 → PACUINP 10:00 → 3W 15:11